=== PATIENT | female | born 1990 | race African-American/Black ===

== ENCOUNTER 2023-06-19 12:05 | Emergency (ER) | payer OTHER ==
[2023-06-19 12:11] VITALS: BP 111/75; PULSE 87; RESP 18; TEMP 98.1; BMI 42.7
[2023-06-19 13:38] LABS: EPI CELLS 23 /uL (0-25.1); HYALINE CASTS 0 /uL (0-3.1); PH,URINE 5.5 (5.0-8.0); URINE APPEARANCE CLEAR; URINE BACTERIA 152 /uL (0-1359); URINE BILIRUBIN NEGATIVE (NEGATIVE); URINE COLOR YELLOW; URINE GLUCOSE (UA) NEGATIVE (NEGATIVE); URINE KETONE NEGATIVE (NEGATIVE); URINE LEUK ESTERASE TRACE (NEGATIVE); URINE NITRITE NEGATIVE (NEGATIVE); URINE PROTEIN NEGATIVE (NEGATIVE); URINE RBC 12 /uL (0-23.9); URINE UROBILINOGEN 0.2 mg/dL (0.2-1.0); URINE WBC 11 /uL (0-25.8)
[2023-06-19 13:44] LABS: HCG,QUALITATIVE URINE Negative
[2023-06-19] MEDS ORDERED: KETOROLAC TROMETHAMINE 30 MG/1 ML VIAL ONE (14:28)
[2023-06-19] MEDS ORDERED: KETOROLAC TROMETHAMINE 30 MG/1 ML VIAL IVPUSH ONE (14:28)
[2023-06-19 14:42] LABS: BASO % 0.7 % (0-2.0); EOS % 7.5 % (0-4.5); HEMATOCRIT 39.9 % (32.4-45.2); HEMOGLOBIN 12.6 GM/dL (10.7-15.3); MCH 26.9 pg (25.7-33.7); MCHC 31.7 g/dl (32.0-36.0); MEAN PLT VOLUME 8.1 fl (7.5-11.1); MONO % 10.6 % (3.8-10.2); NEUT % 37.2 % (42.8-82.8); PLATELET COUNT 317 10^3/uL (134-434); RDW 13.2 % (11.6-15.6); WHITE BLOOD COUNT 5.7 K/mm3 (4.0-10.0)
[2023-06-19 15:10] LABS: POTASSIUM 4.5 mmol/L (3.5-5.1)
[2023-06-19 15:12] LABS: CALCIUM 9.3 mg/dL (8.5-10.1)
[2023-06-19 15:13] LABS: ALBUMIN 3.6 g/dl (3.4-5.0); BLOOD UREA NITROGEN 11.7 mg/dL (7-18)
[2023-06-19 15:16] LABS: CREATININE 0.9 mg/dL (0.55-1.3)
[2023-06-19 15:17] LABS: BILIRUBIN,TOTAL 0.7 mg/dL (0.2-1)
[2023-06-19 15:18] LABS: TOT PROT 7.7 g/dl (6.4-8.2)
== END 2023-06-19 18:44 | disposition home or self-care (01) ==
LOC: JER 12:05 → JERFT 12:05
PROC: 3E033NZ Introduction of Analgesics, Hypnotics, Sedatives into Peripheral Vein, Percutaneous Approach (ICD-10-PCS; principal; 2023-06-19)
DX: M54.16 Radiculopathy, lumbar region (principal); R10.9 Unspecified abdominal pain
CPT/HCPCS: 36415; 72132-TC; 74177-TC; 80053; 81003; 84703; 85025; 87086; 99285-25; Q9967